=== PATIENT | male | born 1970 | race Caucasian/White ===

== ENCOUNTER → 2023-06-05 10:08 | Outpatient (BNVA) | payer BC, SELFPAY | PROVIDERS: Visit Provider Nurse Practitioner | DX: R03.0 Elevated blood-pressure reading, without diagnosis of hypertension (principal) | CPT/HCPCS: 80053; 84443 ==

== ENCOUNTER → 2023-07-04 11:16 | Outpatient (BNVA) | payer BC, SELFPAY | PROVIDERS: Referring Provider Nurse Practitioner Family; Visit Provider Orthopaedic Surgery | DX: M54.9 Dorsalgia, unspecified (principal); M48.062 Spinal stenosis, lumbar region with neurogenic claudication | CPT/HCPCS: 72100 ==

== ENCOUNTER 2023-08-15 16:11 | Outpatient (CLI) | payer BC, SELFPAY ==
--- NOTE | 2023-08-15 16:45 | MR_ITS ---
WS: [id number] MRI LUMBAR SPINE NONCONTRAST TECHNIQUE: Sagittal T1, T2 and STIR imaging. Axial T1 and T2 imaging. CLINICAL INFORMATION: back pain COMPARISON: None. FINDINGS: 6 nonrib-bearing lumbar vertebral bodies. These are considered L1-L6 for the purposes of this dictati on. Counting is performed from the craniocervical junction. Mild lumbar curve. No acute compression. No high-grade central canal stenosis. L1-L2: Normal. L2-L3: Mild facet arthropathy. Spinal canal and foramen are patent. L3-L4: Slight retrolisthesis. Mild annular bulging. Mild facet arthropathy. Mild RIGHT and no signifi cant LEFT foraminal narrowing. L4-L5: Mild annular bulging. Slight effacement of the ventral thecal sac. Mild RIGHT foraminal narrow ing. LEFT foramen is patent. L5-L6: Mild annular bulging. Mild central canal stenosis with narrowing of the subarticular recess bi laterally. Moderate LEFT and no significant RIGHT foraminal narrowing. Moderate facet arthropathy. L6-S1: RIGHT paracentral disc protrusion impinges the RIGHT subarticular recess and traversing RIGHT S1 nerve root. Mild facet arthropathy. Mild RIGHT and no significant LEFT foraminal narrowing. Visualized pelvic bony structures: Normal. Paravertebral soft tissues: Normal. IMPRESSION: 1. 6 nonrib-bearing lumbar vertebral bodies. These are considered L1-L6 for the purposes of this dic tation. Counting is performed from the craniocervical junction. 2. Mild central canal stenosis L5-L6 with narrowing of the subarticular recess bilaterally. Moderate LEFT foraminal narrowing. 3. Shallow RIGHT paracentral protrusion L6-S1 with impingement on the traversing RIGHT S1 nerve root . 4. Mild RIGHT L3-4 and RIGHT L4-5 foraminal narrowing.
== END 2023-08-15 16:12 | disposition home or self-care (01) ==
LOC: RAD 16:11
PROVIDERS: Visit Provider Orthopaedic Surgery
DX: M54.9 Dorsalgia, unspecified (principal); M48.061 Spinal stenosis, lumbar region without neurogenic claudication; M51.27 Other intervertebral disc displacement, lumbosacral region
CPT/HCPCS: 72148